=== PATIENT | female | born 2000 | race Two or more races ===

== ENCOUNTER 2020-11-07 15:03 | Observation (INO) | payer BC ==
[~2020-11-07] VITALS: Ht 170.2 cm; Wt 74.8 kg
[2020-11-07] MEDS ORDERED: PRENCAP11 PO (15:41)
[2020-11-07] MEDS ORDERED: LACTATED RINGER'S 1,000 ML IV ONE (17:00)
[2020-11-07] MEDS ORDERED: TERBUTALINE SULFATE 1 MG/ML 1ML VIAL SC ONE (17:00)
== END 2020-11-07 18:52 | disposition home or self-care (01) ==
LOC: LDRP 15:03
PROVIDERS: ADMIT Obstetrics & Gynecology; ATTEND Obstetrics & Gynecology
DX: O26.893 Other specified pregnancy related conditions, third trimester (principal); R10.9 Unspecified abdominal pain; R10.2 Pelvic and perineal pain; O99.891 Other specified diseases and conditions complicating pregnancy; M54.9 Dorsalgia, unspecified; Z3A.36 36 weeks gestation of pregnancy
CPT/HCPCS: 59025; 81002; 94760; 96360; 96361; 96372; G0378; J3105

== ENCOUNTER 2020-11-28 11:38 | Observation (INO) | payer BC ==
[~2020-11-28] VITALS: Ht 170.2 cm; Wt 79.8 kg
[~2020-11-28 11:38] MED LIST: PRENCAP11 PO
[2020-11-28] MEDS ORDERED: PREN-96 PO (11:59)
[2020-11-28 12:56] LABS: Basophils # (auto) 0 10 ^3/uL (0-0.2); Basophils % (auto) 0.5 % (0.0-2.0); Eosinophils # (auto) 0.2 10 ^3/uL (0-0.8); Eosinophils % (auto) 2.7 % (0.0-7.0); Hematocrit 35.2 % (36.0-46.0); Hemoglobin 11.7 g/dL (12.2-16.2); Lymphocytes # (auto) 1.5 10 ^3/uL (0.4-5.4); Lymphocytes % (auto) 19.3 % (10.0-50.0); Mean Corpuscular Hemoglobin 30.5 pg (28.0-32.0); Mean Corpuscular Hgb Conc. 33.4 g/dL (32.0-36.0); Mean Corpuscular Volume 91.4 fL (80.0-100.0); Monocytes # (auto) 0.6 10 ^3/uL (0-1.3); Monocytes % (auto) 8.6 % (0.0-12.0); Neutrophils # (auto) 5.2 10 ^3/uL (1.6-8.6); Neutrophils % (auto) 68.9 % (37.0-80.0); Nucleated Red Blood Cells % 0.1 %; Red Blood Cells 3.85 10^6/uL (4.0-5.20); Red Cell Distribution Width 14.8 % (11.8-14.3); White Blood Cell 7.5 10^3/uL (4.4-10.8)
[2020-11-28 13:02] LABS: Urine Bacteria FEW /hpf (None Seen); Urine Blood Negative /uL (Negative); Urine Mucus FEW (None Seen); Urine Specific Gravity 1.019 (1.001-1.035); Urine WBC 7 /hpf (0 - 5)
[2020-11-28 13:12] LABS: INR 0.91 (0.9-1.15); Partial Thromboplastin Time 24.6 sec (23.6-33.0)
[2020-11-28 13:21] LABS: Albumin 2.5 g/dL (3.4-5.0); Calcium 8.5 mg/dL (8.5-10.1); Potassium 3.7 mmol/L (3.5-5.1)
[2020-11-28 13:25] LABS: BUN/Creatinine Ratio 10.6; Bilirubin, Total 0.3 mg/dL (0.2-1.0); Total Protein 6.4 g/dL (6.4-8.2)
[2020-11-28 13:33] LABS: Protein, Urine 36.6 mg/dL (0.0-11.9)
== END 2020-11-28 14:33 | disposition home or self-care (01) ==
LOC: LDRP 11:38
PROVIDERS: ADMIT Obstetrics & Gynecology; ATTEND Obstetrics & Gynecology
DX: O26.893 Other specified pregnancy related conditions, third trimester (principal); R21 Rash and other nonspecific skin eruption; Z3A.39 39 weeks gestation of pregnancy; Z79.899 Other long term (current) drug therapy
CPT/HCPCS: 36415; 59025; 80053; 81001; 81002; 82570; 84156; 84550; 85025; 85610; 85730; 94760; G0378; G0379

== ENCOUNTER 2020-11-30 11:00 | Observation (INO) | payer BC ==
[~2020-11-30 11:00] MED LIST changes: +PREN-96 PO; -PRENCAP11 PO
== END 2020-11-30 12:40 | disposition home or self-care (01) ==
LOC: LDRP 11:00
PROVIDERS: ADMIT Obstetrics & Gynecology; ATTEND Obstetrics & Gynecology
DX: O13.3 Gestational [pregnancy-induced] hypertension without significant proteinuria, third trimester (principal); O26.893 Other specified pregnancy related conditions, third trimester; R21 Rash and other nonspecific skin eruption; O62.9 Abnormality of forces of labor, unspecified; Z3A.39 39 weeks gestation of pregnancy
CPT/HCPCS: 59025; 76818; 81002; 94760; G0378; G0379

== ENCOUNTER 2020-12-03 09:06 | Inpatient (IN) | payer BC ==
[~2020-12-03] VITALS: Ht 170.2 cm; Wt 79.8 kg
[2020-12-03] MEDS ORDERED: PHISODERM TOP SOLN 240ML BTL TOP PRN (09:30)
[2020-12-03] MEDS ORDERED: WITCH HAZEL-GLYCERIN PAD TOP PRN (09:30)
[2020-12-03] MEDS ORDERED: PROMETHAZINE HCL 25 MG/ML 1ML IV PRN (09:30)
[2020-12-03] MEDS ORDERED: DERMOPLAST 60ML BOTTLE TOP PRN (09:30)
[2020-12-03] MEDS ORDERED: BUTORPHANOL TARTRATE 2 MG/1 ML VIAL IV PRN ×2 (09:30)
[2020-12-03] MEDS ORDERED: LACT. RINGERS/OXYTOCIN 20UNITS 500 ML IV PRN ×2 (09:30)
[2020-12-03] MEDS ORDERED: LIDOCAINE 2%HCL (LOCAL ANESTH.) INJ 20ML MDV IJ PRN (09:30)
[2020-12-03] MEDS: LACTATED RINGER'S 1,000 ML IV SCH ×2 (09:38→19:49)
[2020-12-03] MEDS: miSOPROStol 50 MCG per PRE-CUT 1/2 TAB PO PRN ×3 (10:11→20:58)
[2020-12-03 10:12] LABS: Basophils # (auto) 0 10 ^3/uL (0-0.2); Basophils % (auto) 0.5 % (0.0-2.0); Eosinophils # (auto) 0.2 10 ^3/uL (0-0.8); Eosinophils % (auto) 3.2 % (0.0-7.0); Hematocrit 34.8 % (36.0-46.0); Hemoglobin 11.8 g/dL (12.2-16.2); Lymphocytes # (auto) 1.7 10 ^3/uL (0.4-5.4); Lymphocytes % (auto) 22.7 % (10.0-50.0); Mean Corpuscular Hemoglobin 30.6 pg (28.0-32.0); Mean Corpuscular Hgb Conc. 33.8 g/dL (32.0-36.0); Mean Corpuscular Volume 90.5 fL (80.0-100.0); Monocytes # (auto) 0.5 10 ^3/uL (0-1.3); Monocytes % (auto) 7.3 % (0.0-12.0); Neutrophils # (auto) 4.9 10 ^3/uL (1.6-8.6); Neutrophils % (auto) 66.3 % (37.0-80.0); Red Blood Cells 3.85 10^6/uL (4.0-5.20); Red Cell Distribution Width 14.5 % (11.8-14.3); White Blood Cell 7.3 10^3/uL (4.4-10.8)
[2020-12-03 10:13] LABS: Albumin 2.6 g/dL (3.4-5.0); Calcium 8.9 mg/dL (8.5-10.1); Potassium 3.6 mmol/L (3.5-5.1); Uric Acid 5.1 mg/dL (2.6-6.0)
[2020-12-03 10:15] LABS: Alcohol, Urine < 3.0 mg/dL (0-10); Amphetamine Screen, Urine NEGATIVE (NEGATIVE); Barbiturate Scree,Urine NEGATIVE (NEGATIVE); Benzodiazephine Screen, Urine NEGATIVE (NEGATIVE); Cannabinoid Screen, Urine NEGATIVE (NEGATIVE); Cocaine Screen, Urine NEGATIVE (NEGATIVE); Opiate Scree,Urine NEGATIVE (NEGATIVE); Phencyclidine Screen, Urine NEGATIVE (NEGATIVE)
[2020-12-03 10:16] LABS: Bilirubin, Total 0.3 mg/dL (0.2-1.0); Total Protein 6.6 g/dL (6.4-8.2)
[2020-12-03 10:16] LABS: Urine Bacteria FEW /hpf (None Seen); Urine Blood Negative /uL (Negative); Urine Specific Gravity 1.013 (1.001-1.035); Urine WBC 8 /hpf (0 - 5)
[2020-12-03 10:25] LABS: INR 0.89 (0.9-1.15); Partial Thromboplastin Time 25.4 sec (23.6-33.0)
[2020-12-03] MEDS ORDERED: PENICILLIN G POT 5MIL/D5 50ML 50 ML IV ONE (11:00)
[2020-12-03] MEDS ORDERED: hydrALAZINE HCL 20 MG/ML VL IV PRN (11:30)
[2020-12-03] MEDS ORDERED: PENICILLIN G POTASSIUM 2,500,000 UNITS in D5W 5% 50 ML IV SCH (15:00)
[2020-12-03] MEDS: PENICILLIN G POTASSIUM 2,500,000 UNITS in D5W 5% 50 ML IV SCH (20:27)
[2020-12-03] MEDS ORDERED: PROMETHAZINE HCL 25 MG/ML 1ML IM ONE (22:00)
[2020-12-04] MEDS: miSOPROStol 50 MCG per PRE-CUT 1/2 TAB PO PRN
[2020-12-04] MEDS ORDERED: STERILE WATER 10 ML ONE (00:24)
[2020-12-04] MEDS ORDERED: PENICILLIN G POT 5MILLION UNIT VIAL ONE (00:24)
[2020-12-04] MEDS: PENICILLIN G POTASSIUM 2,500,000 UNITS in D5W 5% 50 ML IV SCH ×3 (00:36→08:22)
[2020-12-04] MEDS ORDERED: LIDOCAINE HCL 2 %PF INJ 10ML AMP IJ ONE ×2 (02:45→04:30)
[2020-12-04] MEDS ORDERED: fentaNYL CITRATE 100 MCG/2 ML VL IV ONE ×2 (02:45→04:30)
[2020-12-04] MEDS ORDERED: LACTATED RINGER'S 1,000 ML IV ONE ×2 (02:45→04:30)
[2020-12-04] MEDS ORDERED: ROPIVACAINE HCL 200 ML EPI SCH ×3 (02:45→04:30)
[2020-12-04] MEDS ORDERED: NALOXONE HCL 0.4 MG/ML VIAL IV ONE ×2 (02:45→04:30)
[2020-12-04] MEDS ORDERED: ePHEDrine SULFATE 50 MG/ML AMP IV ONE ×2 (02:45→04:30)
[2020-12-04] MEDS ORDERED: LACT. RINGERS/OXYTOCIN 20UNITS 1,000 ML IV SCH (04:15)
[2020-12-04 05:08] LABS: RPR Non Reactive (Non Reactive)
[2020-12-04] MEDS: LACTATED RINGER'S 1,000 ML IV SCH (06:03)
[2020-12-04] MEDS ORDERED: CARBOPROST TROMETHAMINE 250 MCG/1ML VIAL IM ONE (09:04)
[2020-12-04] MEDS ORDERED: DIPHENOXYLATE W/ATROPINE 2.5 MG TAB PO ONE (09:15)
[2020-12-04] MEDS ORDERED: ONDANSETRON HCL 4 MG/2 ML VIAL IV ONE (09:15)
[2020-12-04] MEDS ORDERED: miSOPROStol 100 mcg TAB PR ONE (10:00)
[2020-12-04] MEDS ORDERED: ONDANSETRON HCL 4 MG/2 ML VIAL IV PRN (10:00)
[2020-12-04] MEDS ORDERED: miSOPROStol 100 mcg TAB SL ONE (10:00)
[2020-12-04] MEDS: DIPHENOXYLATE W/ATROPINE 2.5 MG TAB PO SCH ×2 (10:00→22:00)
[2020-12-04] MEDS ORDERED: ACETAMINOPHEN 325 MG TAB PO PRN (10:15)
[2020-12-04] MEDS: CARBOPROST TROMETHAMINE 250 MCG/1ML VIAL IM PRN ×3 (10:20→11:07)
[2020-12-04] MEDS ORDERED: ceFAZolin 1GM/50ML 50 ML IV SCH ×2 (11:00→14:00)
[2020-12-04] MEDS: IBUPROFEN 600 MG TAB PO PRN ×2 (11:28→20:06)
[2020-12-04 14:59] VITALS: BP 144/74
[2020-12-04] MEDS: ceFAZolin 1GM/50ML 50 ML IV SCH (18:47)
[2020-12-04 18:53] VITALS: BP 138/71
[2020-12-04 21:27] LABS: Basophils # (auto) 0 10 ^3/uL (0-0.2); Basophils % (auto) 0.5 % (0.0-2.0); Eosinophils # (auto) 0.2 10 ^3/uL (0-0.8); Eosinophils % (auto) 1.6 % (0.0-7.0); Hematocrit 27.2 % (36.0-46.0); Hemoglobin 9.6 g/dL (12.2-16.2); Lymphocytes % (auto) 18.3 % (10.0-50.0); Mean Corpuscular Hemoglobin 31.6 pg (28.0-32.0); Mean Corpuscular Hgb Conc. 35.1 g/dL (32.0-36.0); Monocytes # (auto) 0.9 10 ^3/uL (0-1.3); Monocytes % (auto) 8.7 % (0.0-12.0); Neutrophils # (auto) 7.7 10 ^3/uL (1.6-8.6); Neutrophils % (auto) 70.9 % (37.0-80.0); Red Blood Cells 3.03 10^6/uL (4.0-5.20); Red Cell Distribution Width 14.4 % (11.8-14.3); White Blood Cell 10.9 10^3/uL (4.4-10.8)
[2020-12-04] MEDS ORDERED: miSOPROStol 100 mcg TAB PO ONE (21:27)
[2020-12-04 22:55] VITALS: BP 118/64
[2020-12-05 03:07] VITALS: BP 115/59
[2020-12-05] MEDS: ceFAZolin 1GM/50ML 50 ML IV SCH ×2 (03:20→11:26)
[2020-12-05 07:30] VITALS: BP 126/63
[2020-12-05 11:27] VITALS: BP 137/85
[2020-12-05] MEDS: IBUPROFEN 600 MG TAB PO PRN (13:34)
[2020-12-05 15:30] VITALS: BP 138/86
[2020-12-05 19:09] VITALS: BP 130/77
[2020-12-05] MEDS ORDERED: TETANUS-DIPTH-ACEL PERTUSSIS 0.5ML SYR Tdap IM ONE (20:00)
[2020-12-05 20:09] VITALS: BP 130/77
== END 2020-12-05 20:09 | disposition home or self-care (01) | DRG 807 ==
LOC: LDRP 09:06 → OBSVTOIN 09:07
PROVIDERS: ADMIT Obstetrics & Gynecology; ATTEND Obstetrics & Gynecology
PROC: 10E0XZZ Delivery of Products of Conception, External Approach (ICD-10-PCS; principal; 2020-12-03)
PROC: 0KQM0ZZ Repair Perineum Muscle, Open Approach (ICD-10-PCS; 2020-12-03)
PROC: 3E0R3BZ Introduction of Anesthetic Agent into Spinal Canal, Percutaneous Approach (ICD-10-PCS; 2020-12-03)
PROC: 0W8NXZZ Division of Female Perineum, External Approach (ICD-10-PCS; 2020-12-03)
PROC: 00HU33Z Insertion of Infusion Device into Spinal Canal, Percutaneous Approach (ICD-10-PCS; 2020-12-03)
PROC: 3E0P7VZ Introduction of Hormone into Female Reproductive, Via Natural or Artificial Opening (ICD-10-PCS; 2020-12-03)
DX: O70.1 Second degree perineal laceration during delivery (principal); Z37.0 Single live birth; Z86.32 Personal history of gestational diabetes; O99.02 Anemia complicating childbirth; O26.86 Pruritic urticarial papules and plaques of pregnancy (PUPPP); Z3A.39 39 weeks gestation of pregnancy; Z20.822 Contact with and (suspected) exposure to COVID-19
CPT/HCPCS: 36415; 59025; 59200; 59409; 62282; 80053; 80307; 81001; 84550; 85025; 85610; 85730; 86592; 86850; 86900; 86901; 87426; 90715; 94760; 94762; 96360; 96361; 96365; 96366; 96372; 96374; G0378; J0690; J2405; J2540; J2590; J7060

== ENCOUNTER 2021-09-03 21:17 | Observation (INO) | payer MEDICAID ==
[2021-09-04 00:12] LABS: Urine Amorphous Crystal FEW /hpf (None Seen); Urine Bacteria NONE SEEN /hpf (None Seen); Urine Blood 1+ /uL (Negative); Urine Specific Gravity 1.017 (1.001-1.035); Urine WBC 3 /hpf (0 - 5)
== END 2021-09-04 00:36 | disposition home or self-care (01) ==
LOC: LDRP 21:17
PROVIDERS: ADMIT Obstetrics & Gynecology; ATTEND Obstetrics & Gynecology
DX: O60.02 Preterm labor without delivery, second trimester (principal); O62.9 Abnormality of forces of labor, unspecified; O26.892 Other specified pregnancy related conditions, second trimester; R10.2 Pelvic and perineal pain; Z3A.20 20 weeks gestation of pregnancy; Z79.899 Other long term (current) drug therapy
CPT/HCPCS: 59025; 76815; 81001; 81002; 87491; 87591; 94760; G0378

== ENCOUNTER 2021-12-09 07:06 | Observation (INO) | payer OTHER ==
[~2021-12-09] VITALS: Ht 170.2 cm; Wt 74.4 kg
[2021-12-09] MEDS ORDERED: LACTATED RINGER'S 1,000 ML IV ONE (08:15)
[2021-12-09 08:37] LABS: Eosinophils # (auto) 0 10 ^3/uL (0-0.8); Hematocrit 28.1 % (36.0-46.0); Mean Corpuscular Volume 79.1 fL (80.0-100.0); Monocytes # (auto) 0.9 10 ^3/uL (0-1.3); Neutrophils # (auto) 7.8 10 ^3/uL (1.6-8.6); Red Blood Cells 3.55 10^6/uL (4.0-5.20)
[2021-12-09 08:38] LABS: Basophils # (auto) 0.1 10 ^3/uL (0-0.2); Basophils % (auto) 0.6 % (0.0-2.0); Eosinophils % (auto) 0.2 % (0.0-7.0); Hemoglobin 9.1 g/dL (12.2-16.2); Lymphocytes % (auto) 10.4 % (10.0-50.0); Mean Corpuscular Hemoglobin 25.6 pg (28.0-32.0); Mean Corpuscular Hgb Conc. 32.4 g/dL (32.0-36.0); Monocytes % (auto) 8.7 % (0.0-12.0); Neutrophils % (auto) 80.1 % (37.0-80.0); Red Cell Distribution Width 15.3 % (11.8-14.3); White Blood Cell 9.8 10^3/uL (4.4-10.8)
[2021-12-09 08:57] LABS: Albumin 2.6 g/dL (3.4-5.0); Calcium 7.8 mg/dL (8.5-10.1); Potassium 3.6 mmol/L (3.5-5.1)
[2021-12-09 09:01] LABS: BUN/Creatinine Ratio 6.7; Bilirubin, Total 0.5 mg/dL (0.2-1.0)
== END 2021-12-09 10:29 | disposition home or self-care (01) ==
LOC: LDRP 07:06
PROVIDERS: ADMIT Obstetrics & Gynecology; ATTEND Obstetrics & Gynecology
DX: O62.9 Abnormality of forces of labor, unspecified (principal); O26.893 Other specified pregnancy related conditions, third trimester; R10.12 Left upper quadrant pain; O99.891 Other specified diseases and conditions complicating pregnancy; M54.9 Dorsalgia, unspecified; Z3A.33 33 weeks gestation of pregnancy
CPT/HCPCS: 36415; 59025; 76700; 80053; 81002; 85025; 94760; 96360; 96361; G0378

== ENCOUNTER 2021-12-10 09:21 | Inpatient (IN) | payer MEDICAID, OTHER ==
[~2021-12-10] VITALS: Ht 170.2 cm; Wt 74.4 kg
[2021-12-10] MEDS ORDERED: LACTATED RINGER'S 1,000 ML IV ONE (10:30)
[2021-12-10] MEDS ORDERED: SODIUM CHLORIDE 0.9% 1,000 ML IV ONE (11:00)
[2021-12-10] MEDS: ONDANSETRON HCL 4 MG/2 ML VIAL IV PRN ×3 (11:09→19:31)
[2021-12-10] MEDS ORDERED: BUTORPHANOL TARTRATE 2 MG/1 ML VIAL IV PRN (11:45)
[2021-12-10 11:48] LABS: Basophils # (auto) 0 10 ^3/uL (0-0.2); Basophils % (auto) 0.5 % (0.0-2.0); Eosinophils # (auto) 0 10 ^3/uL (0-0.8); Eosinophils % (auto) 0.3 % (0.0-7.0); Hematocrit 28.9 % (36.0-46.0); Hemoglobin 9.1 g/dL (12.2-16.2); Lymphocytes # (auto) 0.8 10 ^3/uL (0.4-5.4); Lymphocytes % (auto) 9.2 % (10.0-50.0); Mean Corpuscular Hemoglobin 25.3 pg (28.0-32.0); Mean Corpuscular Hgb Conc. 31.4 g/dL (32.0-36.0); Mean Corpuscular Volume 80.6 fL (80.0-100.0); Monocytes # (auto) 0.7 10 ^3/uL (0-1.3); Monocytes % (auto) 7.6 % (0.0-12.0); Neutrophils # (auto) 7.4 10 ^3/uL (1.6-8.6); Neutrophils % (auto) 82.4 % (37.0-80.0); Red Blood Cells 3.58 10^6/uL (4.0-5.20)
[2021-12-10 12:07] LABS: Albumin 2.6 g/dL (3.4-5.0); Calcium 7.7 mg/dL (8.5-10.1); Potassium 3.8 mmol/L (3.5-5.1)
[2021-12-10 12:10] LABS: BUN/Creatinine Ratio 5.6; Bilirubin, Total 0.8 mg/dL (0.2-1.0); Total Protein 6.1 g/dL (6.4-8.2)
[2021-12-10] MEDS: SODIUM CHLORIDE 0.9% 1,000 ML IV SCH ×2 (12:31→17:27)
[2021-12-10 12:32] LABS: Urine Bacteria NONE SEEN /hpf (None Seen); Urine Blood Negative /uL (Negative); Urine Specific Gravity 1.025 (1.001-1.035); Urine WBC 5 /hpf (0 - 5)
[2021-12-10 12:42] LABS: Alcohol, Urine < 3.0 mg/dL (0-10); Amphetamine Screen, Urine NEGATIVE (NEGATIVE); Barbiturate Scree,Urine NEGATIVE (NEGATIVE); Benzodiazephine Screen, Urine NEGATIVE (NEGATIVE); Cannabinoid Screen, Urine NEGATIVE (NEGATIVE); Cocaine Screen, Urine NEGATIVE (NEGATIVE); Opiate Scree,Urine NEGATIVE (NEGATIVE); Phencyclidine Screen, Urine NEGATIVE (NEGATIVE)
[2021-12-10] MEDS: BETAMETHASONE ACET (30mg/5ml) 5ml Vial 6mg/ml IM SCH (13:45)
[2021-12-10] MEDS: HYDROmorphone HCL 2 MG/ML VL/or syr IV PRN ×3 (17:24→23:32)
[2021-12-11] MEDS: SODIUM CHLORIDE 0.9% 1,000 ML IV SCH ×2 (01:20→08:20)
[2021-12-11] MEDS: HYDROmorphone HCL 2 MG/ML VL/or syr IV PRN ×2 (04:39→11:41)
[2021-12-11 06:38] LABS: Basophils # (auto) 0 10 ^3/uL (0-0.2); Basophils % (auto) 0.2 % (0.0-2.0); Eosinophils # (auto) 0 10 ^3/uL (0-0.8); Hematocrit 28.4 % (36.0-46.0); Hemoglobin 8.8 g/dL (12.2-16.2); Lymphocytes # (auto) 1.1 10 ^3/uL (0.4-5.4); Lymphocytes % (auto) 7.3 % (10.0-50.0); Mean Corpuscular Hemoglobin 24.9 pg (28.0-32.0); Mean Corpuscular Hgb Conc. 31.1 g/dL (32.0-36.0); Mean Corpuscular Volume 80.3 fL (80.0-100.0); Monocytes # (auto) 1.1 10 ^3/uL (0-1.3); Monocytes % (auto) 7.8 % (0.0-12.0); Neutrophils # (auto) 12.3 10 ^3/uL (1.6-8.6); Neutrophils % (auto) 84.7 % (37.0-80.0); Red Blood Cells 3.54 10^6/uL (4.0-5.20); Red Cell Distribution Width 15.5 % (11.8-14.3); White Blood Cell 14.5 10^3/uL (4.4-10.8)
[2021-12-11 06:54] LABS: Albumin 2.4 g/dL (3.4-5.0); Potassium 4.9 mmol/L (3.5-5.1)
[2021-12-11 06:56] LABS: BUN/Creatinine Ratio 5.2; Bilirubin, Total 0.8 mg/dL (0.2-1.0)
[2021-12-11] MEDS ORDERED: ceFAZolin 1GM/50ML 50 ML IV SCH (08:00)
[2021-12-11] MEDS: ONDANSETRON HCL 4 MG/2 ML VIAL IV PRN (09:17)
[2021-12-11] MEDS ORDERED: BETAMETHASONE ACET (30mg/5ml) 5ml Vial 6mg/ml IM SCH (10:00)
[2021-12-11] MEDS: BETAMETHASONE ACET (30mg/5ml) 5ml Vial 6mg/ml IM SCH (11:43)
[2021-12-11 12:11] VITALS: BP 165/70
== END 2021-12-11 13:27 | disposition short-term general hospital (02) | DRG 566 ==
LOC: LDRP 09:21 → OBSVTOIN 12-11 10:43
PROVIDERS: ADMIT Obstetrics & Gynecology; ATTEND Obstetrics & Gynecology
DX: O99.283 Endocrine, nutritional and metabolic diseases complicating pregnancy, third trimester (principal); E86.0 Dehydration; O99.891 Other specified diseases and conditions complicating pregnancy; N13.2 Hydronephrosis with renal and ureteral calculous obstruction; Z20.822 Contact with and (suspected) exposure to COVID-19; Z3A.34 34 weeks gestation of pregnancy; Z87.442 Personal history of urinary calculi
CPT/HCPCS: 36415; 59025; 76705; 76775; 76805; 76818; 80053; 80307; 81001; 82150; 83690; 85025; 94762; 96360; 96361; 96372; 96374; 96375; G0378; J0690; J2405

== ENCOUNTER 2021-12-21 10:40 | Observation (INO) | payer MEDICAID ==
[~2021-12-21] VITALS: Ht 170.2 cm; Wt 74.4 kg
[2021-12-21] MEDS ORDERED: ACETAMINOPHEN 325 MG TAB PO PRN (11:45)
[2021-12-21] MEDS ORDERED: LACTATED RINGER'S 1,000 ML IV ONE (11:45)
[2021-12-21] MEDS ORDERED: HYDROcodone-ACET 5/325MG TAB PO ONE (12:15)
== END 2021-12-21 13:51 | disposition home or self-care (01) ==
LOC: LDRP 10:40
PROVIDERS: ADMIT Obstetrics & Gynecology; ATTEND Obstetrics & Gynecology
DX: O62.9 Abnormality of forces of labor, unspecified (principal); O99.891 Other specified diseases and conditions complicating pregnancy; M54.9 Dorsalgia, unspecified; Z3A.35 35 weeks gestation of pregnancy
CPT/HCPCS: 59025; 81002; 94760; 96360; 96361; G0378

== ENCOUNTER 2022-01-10 13:26 | Observation (INO) | payer MEDICAID ==
[~2022-01-10] VITALS: Ht 170.2 cm; Wt 74.4 kg
== END 2022-01-10 15:00 | disposition home or self-care (01) ==
LOC: LDRP 13:26
PROVIDERS: ADMIT Obstetrics & Gynecology; ATTEND Obstetrics & Gynecology
DX: O42.92 Full-term premature rupture of membranes, unspecified as to length of time between rupture and onset of labor (principal); O62.9 Abnormality of forces of labor, unspecified; O26.893 Other specified pregnancy related conditions, third trimester; R10.2 Pelvic and perineal pain; N20.0 Calculus of kidney; Z3A.38 38 weeks gestation of pregnancy
CPT/HCPCS: 59025; 81002; 84112; 94760; G0378; Q0114

== ENCOUNTER 2022-01-17 08:40 | Observation (INO) | payer MEDICAID | END 2022-01-17 10:27 | disposition home or self-care (01) | LOC: LDRP 08:40 | PROVIDERS: ADMIT Obstetrics & Gynecology; ATTEND Obstetrics & Gynecology | DX: O26.893 Other specified pregnancy related conditions, third trimester (principal); R10.9 Unspecified abdominal pain; O62.9 Abnormality of forces of labor, unspecified; Z3A.39 39 weeks gestation of pregnancy | CPT/HCPCS: 59025; 81002; 94760; G0378 ==

== ENCOUNTER 2022-01-20 17:35 | Inpatient (IN) | payer MEDICAID ==
[~2022-01-20] VITALS: Ht 170.2 cm; Wt 74.8 kg
[2022-01-20] MEDS ORDERED: BUTORPHANOL TARTRATE 2 MG/1 ML VIAL IV PRN ×2 (18:00)
[2022-01-20] MEDS ORDERED: LIDOCAINE 2%HCL (LOCAL ANESTH.) INJ 10ml MDV IJ PRN (18:00)
[2022-01-20] MEDS ORDERED: PROMETHAZINE HCL 25 MG/ML 1ML IV PRN (18:00)
[2022-01-20] MEDS ORDERED: LACT. RINGERS/OXYTOCIN 20UNITS 500 ML IV ONE ×2 (18:15→18:45)
[2022-01-20] MEDS: LACTATED RINGER'S 1,000 ML IV SCH ×2 (18:22→22:01)
[2022-01-20 19:17] LABS: Basophils # (auto) 0 10 ^3/uL (0-0.2); Basophils % (auto) 0.4 % (0.0-2.0); Eosinophils # (auto) 0 10 ^3/uL (0-0.8); Eosinophils % (auto) 0.7 % (0.0-7.0); Hematocrit 33.3 % (36.0-46.0); Lymphocytes # (auto) 1.8 10 ^3/uL (0.4-5.4); Lymphocytes % (auto) 25.3 % (10.0-50.0); Mean Corpuscular Hemoglobin 27.5 pg (28.0-32.0); Mean Corpuscular Volume 83.1 fL (80.0-100.0); Monocytes # (auto) 0.6 10 ^3/uL (0-1.3); Monocytes % (auto) 7.7 % (0.0-12.0); Neutrophils # (auto) 4.8 10 ^3/uL (1.6-8.6); Neutrophils % (auto) 65.9 % (37.0-80.0); Red Blood Cells 4.01 10^6/uL (4.0-5.20); White Blood Cell 7.2 10^3/uL (4.4-10.8)
[2022-01-20 19:37] LABS: Albumin 2.6 g/dL (3.4-5.0); Calcium 8.7 mg/dL (8.5-10.1); Potassium 3.5 mmol/L (3.5-5.1)
[2022-01-20 19:41] LABS: INR 0.89 (0.9-1.15); Partial Thromboplastin Time 25.9 sec (24.6-33.4)
[2022-01-20 19:42] LABS: BUN/Creatinine Ratio 16.3; Bilirubin, Total 0.3 mg/dL (0.2-1.0); Total Protein 6.5 g/dL (6.4-8.2)
[2022-01-20 20:43] LABS: Alcohol, Urine < 3.0 mg/dL (0-10); Amphetamine Screen, Urine NEGATIVE (NEGATIVE); Barbiturate Scree,Urine NEGATIVE (NEGATIVE); Cannabinoid Screen, Urine NEGATIVE (NEGATIVE); Cocaine Screen, Urine NEGATIVE (NEGATIVE); Opiate Scree,Urine NEGATIVE (NEGATIVE); Phencyclidine Screen, Urine NEGATIVE (NEGATIVE)
[2022-01-20 20:48] LABS: Urine Amorphous Crystal FEW /hpf (None Seen); Urine Bacteria NONE SEEN /hpf (None Seen); Urine WBC 2 /hpf (0 - 5)
[2022-01-20 20:49] LABS: Urine Blood Normal /uL (Negative)
[2022-01-20 21:09] LABS: Benzodiazephine Screen, Urine NEGATIVE (NEGATIVE)
[2022-01-20] MEDS ORDERED: LACT. RINGERS/OXYTOCIN 20UNITS 1,000 ML IV SCH (21:45)
[2022-01-20] MEDS ORDERED: TERBUTALINE SULFATE 1 MG/ML 1ML VIAL SC PRN (21:45)
[2022-01-20] MEDS: WITCH HAZEL-GLYCERIN PAD TOP PRN (23:04)
[2022-01-20] MEDS: DERMOPLAST 60ML BOTTLE TOP PRN (23:04)
[2022-01-20] MEDS: PHISODERM TOP SOLN 240ML BTL TOP PRN (23:04)
[2022-01-21] MEDS: LACTATED RINGER'S 1,000 ML IV SCH (01:32)
[2022-01-21] MEDS ORDERED: LIDOCAINE HCL 2 %PF INJ 10ML AMP IJ ONE (03:00)
[2022-01-21] MEDS ORDERED: fentaNYL CITRATE 100 MCG/2 ML VL IV ONE (03:00)
[2022-01-21] MEDS ORDERED: NALOXONE HCL 0.4 MG/ML VIAL IV ONE (03:00)
[2022-01-21] MEDS ORDERED: ePHEDrine SULFATE 50 MG/ML AMP IV ONE (03:00)
[2022-01-21] MEDS ORDERED: ROPIVACAINE HCL 200 ML EPI SCH (03:00)
[2022-01-21] MEDS ORDERED: LACTATED RINGER'S 1,000 ML IV ONE (03:00)
[2022-01-21] MEDS ORDERED: METHYLERGONOVINE MALEATE 0.2 MG/ML AMP IM PRN (07:30)
[2022-01-21] MEDS ORDERED: miSOPROStol 100 mcg TAB SL PRN ×2 (07:30→08:00)
[2022-01-21] MEDS ORDERED: miSOPROStol 100 mcg TAB PR PRN (07:30)
[2022-01-21] MEDS: DERMOPLAST 60ML BOTTLE TOP PRN (07:57)
[2022-01-21] MEDS: PHISODERM TOP SOLN 240ML BTL TOP PRN (07:57)
[2022-01-21] MEDS: WITCH HAZEL-GLYCERIN PAD TOP PRN (07:57)
[2022-01-21] MEDS ORDERED: ACETAMINOPHEN 325 MG TAB PO PRN (10:15)
[2022-01-21] MEDS: IBUPROFEN 600 MG TAB PO PRN ×2 (11:22→21:26)
[2022-01-21 11:23] VITALS: BP 134/74
[2022-01-21 14:50] VITALS: BP 130/80
[2022-01-21 19:00] VITALS: BP 126/75
[2022-01-21 23:00] VITALS: BP 138/68
[2022-01-22 03:00] VITALS: BP 134/72
[2022-01-22] MEDS: IBUPROFEN 600 MG TAB PO PRN (05:41)
[2022-01-22] MEDS: WITCH HAZEL-GLYCERIN PAD TOP PRN (05:44)
[2022-01-22 06:06] LABS: RPR Non Reactive (Non Reactive)
[2022-01-22 07:30] VITALS: BP 136/93
[2022-01-22 11:30] VITALS: BP 134/91
[2022-01-22 13:50] VITALS: BP 126/90
== END 2022-01-22 14:16 | disposition home or self-care (01) | DRG 560 ==
LOC: LDRP 17:35 → OBSVTOIN 17:55 → LDRP 01-21 10:01
PROVIDERS: ADMIT Obstetrics & Gynecology; ATTEND Obstetrics & Gynecology
PROC: 10E0XZZ Delivery of Products of Conception, External Approach (ICD-10-PCS; principal; 2022-01-21)
PROC: 3E0R3BZ Introduction of Anesthetic Agent into Spinal Canal, Percutaneous Approach (ICD-10-PCS; 2022-01-21)
PROC: 00HU33Z Insertion of Infusion Device into Spinal Canal, Percutaneous Approach (ICD-10-PCS; 2022-01-21)
PROC: 0HQ9XZZ Repair Perineum Skin, External Approach (ICD-10-PCS; 2022-01-21)
DX: O69.81X0 Labor and delivery complicated by cord around neck, without compression, not applicable or unspecified (principal); Z37.0 Single live birth; O70.0 First degree perineal laceration during delivery; O76 Abnormality in fetal heart rate and rhythm complicating labor and delivery; Z3A.39 39 weeks gestation of pregnancy; Z20.822 Contact with and (suspected) exposure to COVID-19
CPT/HCPCS: 36415; 59025; 59409; 62282; 80053; 80307; 81001; 81002; 85025; 85610; 85730; 86592; 86850; 86900; 86901; 87426; 94760; 94762; 96360; 96365; 96366; G0378; J2001; J2590

== ENCOUNTER 2023-10-20 18:42 | Emergency (ER) | payer BC, MEDICAID ==
[~2023-10-20] VITALS: Ht 172.7 cm; Wt 59.0 kg
[2023-10-20 18:52] VITALS: BP 118/78; PULSE 87; RESP 92; O2SAT 97
== END 2023-10-20 22:31 | disposition left against medical advice (07) ==
LOC: ER 18:42
DX: Z00.00 Encounter for general adult medical examination without abnormal findings (principal); Z53.21 Procedure and treatment not carried out due to patient leaving prior to being seen by health care provider